=== PATIENT | female | born 2000 | race Caucasian/White ===

== ENCOUNTER → 2020-08-05 15:39 | Outpatient (BNVA) | payer MEDICAID, SELFPAY | PROVIDERS: Family Provider Nurse Practitioner Family; PCP Nurse Practitioner Family; Visit Provider Nurse Practitioner Women's Health | DX: E28.2 Polycystic ovarian syndrome (principal) | CPT/HCPCS: 88175 ==

== ENCOUNTER → 2021-08-06 15:49 | Outpatient (BNVA) | payer MEDICAID, SELFPAY | PROVIDERS: Family Provider Nurse Practitioner Family; PCP Nurse Practitioner Family; Visit Provider Nurse Practitioner Women's Health | DX: R00.0 Tachycardia, unspecified (principal); R53.83 Other fatigue; E28.2 Polycystic ovarian syndrome; N76.0 Acute vaginitis; Z01.419 Encounter for gynecological examination (general) (routine) without abnormal findings; Z30.41 Encounter for surveillance of contraceptive pills; G43.009 Migraine without aura, not intractable, without status migrainosus | CPT/HCPCS: 83036; 84439; 84443; 85025 ==

== ENCOUNTER → 2021-08-19 15:03 | Outpatient (BNVA) | payer MEDICAID, SELFPAY | PROVIDERS: Family Provider Nurse Practitioner Family; PCP Nurse Practitioner Family; Visit Provider Nurse Practitioner Family | DX: F41.9 Anxiety disorder, unspecified (principal); R53.83 Other fatigue; F32.A Depression, unspecified | CPT/HCPCS: 82306; 82607; 83540 ==

== ENCOUNTER → 2021-12-03 10:12 | Outpatient (BNVA) | payer BC, MEDICAID, SELFPAY | PROVIDERS: Family Provider Nurse Practitioner Family; PCP Nurse Practitioner Family; Visit Provider Nurse Practitioner Family | DX: E55.9 Vitamin D deficiency, unspecified (principal) | CPT/HCPCS: 82306 ==

== ENCOUNTER 2022-01-13 15:29 | Emergency (ER) | payer BC, MEDICAID, SELFPAY ==
[2022-01-13 15:44] VITALS: BP 124/86; PULSE 72; RESP 20; TEMP 36.9; O2SAT 98; BMI 32.9
--- NOTE | 2022-01-13 15:54 | XRR_ITS ---
PROCEDURE INFORMATION: Exam: XR Right Wrist Exam date and time: 01/13/2022 4:30 PM Age: 21 years old Clinical indication: Pain; Wrist; Right; Additional info: Right wrist injury with pain TECHNIQUE: Imaging protocol: XR Right wrist. Views: 3 or more views. COMPARISON: No relevant prior studies available. FINDINGS: Bones/joints: Osseous structures are intact. Negative for fracture. Joint spaces are preserved. Soft tissues: Normal. XR/XR wrist RT min 3V* [id number] IMPRESSION: No acute findings.
--- NOTE | 2022-01-13 15:54 | XRR_ITS ---
PROCEDURE INFORMATION: Exam: XR Right Hand Exam date and time: 01/13/2022 4:30 PM Age: 21 years old Clinical indication: Pain; Hand; Right; Additional info: Injury with pain in fingers TECHNIQUE: Imaging protocol: XR Right hand. Views: 3 or more views. COMPARISON: No relevant prior studies available. FINDINGS: Bones/joints: Osseous structures are intact. Negative for fracture. Joint spaces are preserved. Soft tissues: Normal. XR/XR hand RT min 3V* [id number] IMPRESSION: No acute findings.
--- NOTE | 2022-01-13 15:59 | ED_ITS ---
HPI - Extremity Problem General: Chief complaint: Extremity Injury, Upper Stated complaint: Rt hand injury Time Seen by Provider: 01/13/22 15:54 History of Present Illness: Patient is a 21-year-old female comes to the ED with right hand and right wrist injury. Injury occurred just prior to arrival. Patient says she was angry at her dog for jumping out the window and getting loose. She went to slam her front door and accidentally slammed it on her right hand. She is some pain and swelling in palm of right hand along with her second through fifth digits. Full range of motion but does complain of some pain with movement. No pain with range of motion in right wrist. Associated symptoms: Deny chest pain, fever(s) or rash Review of Systems Const: Denies: fever(s), chills or fatigue Eyes: Denies: change in vision or eye discomfort ENMT: Denies: throat pain, odynophagia, nasal discharge or nasal congestion Card: Denies: chest pain, palpitations, edema, swelling of feet/ankles, dyspnea on exertion or orthopnea Resp: Denies: dyspnea, productive cough or non-productive cough GI: Denies: abdominal pain, nausea, vomiting, diarrhea, constipation or hematochezia : Denies: flank pain, dysuria or hematuria Musc: Reports: extremity pain (Right wrist and hand.); Denies: neck pain, back pain or extremity swelling Skin/Breast: Denies: rash or new lesions Neuro: Denies: headache(s), numbness in extremities or weakness in extremities [facility] ED PFSH: Medical History Genital herpes simplex 12/19/2018: 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 Patient denies medical problems neghx:htn,dm,thyroid,dvt/pe PCP: Magdalena RESENDIZ Surgical History No history of previous surgery Family History Grandmother Colon cancer maternal--- dx age unknown Grandfather Hyperlipidemia maternal Heart disease maternal Family/Other Diabetes maternal aunt Patient denies medical problems Denies family history of: hypertension, thyroid problems, breast cancer, ovarian cancer, or uterine cancer. Other Stroke Social History Smoking and tobacco status: current every day smoker Quit status (tobacco): has quit using tobacco Year quit tobacco: 08/2019 Alcohol intake: never Additional social history: Well balanced diet Female Reproductive History: Date of last menstrual period: 09/08/19 Physical Exam Const: COMMON NORMALS: no acute distress, patient oriented x3, healthy appearing and alert GENERAL APPEARANCE: cooperative and comfortable HENMT: COMMON NORMALS: normocephalic HEAD & SCALP: normocephalic MOUTH: Normal oral and palatal mucosa present THROAT: posterior oropharynx normal and uvula midline Neck/C-Spine: COMMON NORMALS: supple GENERAL: Yes normal visual inspection Resp: COMMON NORMALS: normal respiratory effort, No retractions, No use of accessory muscles and clear to auscultation bilaterally AUSCULTATION: clear to auscultation bilaterally Cardio: COMMON NORMALS: regular rate, regular rhythm, S1 normal heart sound present, S2 normal heart sound present, No gallops present (Cardio), No clicks present (Cardio), No murmurs present (Cardio) and Peripheral pulses 2+ throughout RATE: regular rate RHYTHM: regular rhythm HEART SOUNDS: S1 normal heart sound present and S2 normal heart sound present PERIPHERAL PULSES: Peripheral pulses 2+ throughout GI: COMMON NORMALS: Normal to inspection, nondistended, normoactive bowel sounds present, Soft to palpation, non-tender and no masses PALPATION: Yes Soft to palpation : COMMON NORMALS: Yes no CVA tenderness BLADDER/KIDNEY EXAM: Yes no CVA tenderness Back/Pelvis: COMMON NORMALS: no CVA tenderness Extremity: COMMON NORMALS: normal to inspection, full ROM and capillary refill normal NARRATIVE EXTREMITY EXAM: No nail or nailbed damage noted on right hand. Neuro: COMMON NORMALS: patient oriented x3 and moves all extremities SENSORIUM/ORIENTATION: Yes alert Skin: GENERAL SKIN EXAM: dry skin Course Vital Signs: Vital signs: Vital Signs Temperature 98.5 F 01/13/22 16:11 Pulse Rate 77 01/13/22 17:04 Respiratory Rate 16 01/13/22 17:04 Blood Pressure 111/70 01/13/22 17:04 Pulse Oximetry 97 01/13/22 17:04 MDM - Extremity (Nontraumatic) Medical Decision Making Patient comes the ED with a right hand and wrist injury. Exam is benign. Neurovascular tact distally in right hand. vitals are stable. No nailbed or nail damage seen. X-ray of right wrist and hand showed no acute fractures or findings. Patient was diagnosed with a contusion of hand and was discharged home. She was told to follow-up with PCP in the next week for reevaluation. Return ED precautions given. Patient is to agree with plan. Lab Data Radiology Impressions Hand X-Ray 01/13/22 15:54 IMPRESSION: No acute findings. Wrist X-Ray 01/13/22 15:54 IMPRESSION: No acute findings. Discharge Plan Discharge Patient Disposition: Home Clinical Impression: Contusion of right hand including fingers Qualifiers: Encounter type: initial encounter Qualified Code(s): S60.221A - Contusion of right hand, initial encounter Condition: Stable Prescriptions: No Action norgestimate-ethinyl estradiol [Sprintec (28)] 0.25-35 mg-mcg tablet 1 tab PO DAILY Qty: 84 3RF metronidazole 500 mg tablet 500 mg PO BID Qty: 14 0RF citalopram [Celexa] 20 mg tablet 20 mg PO DAILY Qty: 30 5RF acyclovir 400 mg tablet 400 mg PO TID PRN0RF topiramate [Topamax] 200 mg tablet 100 mg PO BID PRN0RF sumatriptan succinate [Imitrex] 100 mg tablet 100 mg PO ONCE PRN0RF acetaminophen [Tylenol] 325 mg capsule 650 mg PO Q6H PRN0RF cholecalciferol (vitamin D3) 1,250 mcg (50,000 unit) capsule 50,000 unit PO .weekly 28 Days Qty: 4 2RF Discharge Orders: Discharge ED (Routine); Ordered 01/13/22 Ordered By: Ld Michel Referrals: Frida Sahu FNP-C [Primary Care Provider] - Discharge Diet: Regular Discharge Activity: Increase activity as tolerated Activity Restrictions/Additional Instructions: Follow-up with medical provider as directed in the next 5 to 7 days reevaluation. Apply cold pack on right hand to help with symptoms. Take [id number] Tylenol for any pain. Return to the ER or your medical provider if condition worsens. Please read and understand discharge instructions. Thank you for choosing [facility] for your healthcare needs today. Please realize this is an emergency room and that we are providing you with a medical screening exam and this may not be complete and all inclusive of all the testing and or work up that you may need to determine your ailment or severity of your illness. It is very important that you follow up as instructed or that you return to the Emergency Department should you have concerns or if your condition changes or worsens in any way. Coding Level of Care Code ED Die Trimmer for Williams Ch Exam Comprehensive
[2022-01-13 16:11] VITALS: BP 124/86; PULSE 72; RESP 18; TEMP 36.9; O2SAT 98
[2022-01-13] MEDS: ibuprofen 800 mg tablet PO (16:14)
[2022-01-13 17:04] VITALS: BP 111/70; PULSE 77; RESP 16; O2SAT 97
== END 2022-01-13 17:05 | disposition home or self-care (01) ==
PROVIDERS: Emergency Provider Physician Assistant; PCP Nurse Practitioner Family
DX: S60.221A Contusion of right hand, initial encounter (principal); W22.8XXA Striking against or struck by other objects, initial encounter; F17.210 Nicotine dependence, cigarettes, uncomplicated
CPT/HCPCS: 73110; 73130; 99283

== ENCOUNTER → 2022-04-05 08:01 | Outpatient (BNVA) | payer BC, MEDICAID, SELFPAY | PROVIDERS: PCP Nurse Practitioner Family; Visit Provider Orthopaedic Surgery | DX: M54.9 Dorsalgia, unspecified (principal) | CPT/HCPCS: 72050; 72070; 72110; 99204 ==

== ENCOUNTER 2022-05-27 06:33 | Outpatient (CLI) | payer BC, MEDICAID, SELFPAY ==
--- NOTE | 2022-05-27 07:15 | MR_ITS ---
WS: [id number] MRI LUMBAR SPINE NONCONTRAST HISTORY: Low back pain and lower extremity numbness for several months. COMPARISON: 04/05/2022 radiograph. TECHNIQUE: Sagittal and axial multisequence imaging is submitted. Normal lumbar alignment with no compression fractures or marrow edema. Disc spaces and vertebral body heights are well-preserved. Conus terminates normally at L1-2 disc level. L1-L2: Normal. L2-L3: Normal. L3-L4: Normal. L4-L5: Very mild disc bulging. Mild encroachment upon the ventral thecal sac. The central canal is sm all but not significantly stenosed at this time. L5-S1: Mild disc bulging. There is very slight disc contact on the LEFT exiting L5 nerve root. No dis placement. No stenosis. No retroperitoneal abnormality. MR/MR lumbar spine wo con* [id number] IMPRESSION: 1. No significant central or foraminal stenosis or disc protrusion. 2. Very mild narrowing of the central canal at L4-5. 3. Minimal disc bulge at L5-S1. There is very slight disc contact on the LEFT L5 nerve root.
== END 2022-05-27 06:34 | disposition home or self-care (01) ==
LOC: RAD 06:35
PROVIDERS: PCP Nurse Practitioner Family; Visit Provider Orthopaedic Surgery
DX: M51.27 Other intervertebral disc displacement, lumbosacral region (principal)
CPT/HCPCS: 72148

== ENCOUNTER 2023-01-26 20:00 | Outpatient (CLI) | payer BC, MEDICAID, SELFPAY | END 2023-01-26 20:01 | disposition home or self-care (01) | LOC: SLEEP 01-27 04:19 | PROVIDERS: PCP Nurse Practitioner Family; Visit Provider Anesthesiology Pain Medicine | DX: G47.10 Hypersomnia, unspecified (principal); R06.83 Snoring | CPT/HCPCS: 95810 ==

== ENCOUNTER → 2023-01-30 | Outpatient (BNVA) | payer BC, MEDICAID, SELFPAY | PROVIDERS: PCP Nurse Practitioner Family; Visit Provider Nurse Practitioner Women's Health | DX: Z01.419 Encounter for gynecological examination (general) (routine) without abnormal findings (principal); E28.2 Polycystic ovarian syndrome | CPT/HCPCS: 88175 ==

== ENCOUNTER → 2023-02-01 09:40 | Outpatient (BNVA) | payer BC, MEDICAID, SELFPAY | PROVIDERS: PCP Nurse Practitioner Family; Visit Provider Nurse Practitioner Women's Health | DX: E28.2 Polycystic ovarian syndrome (principal); Z31.9 Encounter for procreative management, unspecified | CPT/HCPCS: 83036; 84146; 84402; 84443; 86762 ==

== ENCOUNTER → 2023-02-06 08:26 | Outpatient (BNVA) | payer BC, MEDICAID, SELFPAY | PROVIDERS: PCP Nurse Practitioner Family; Visit Provider Obstetrics & Gynecology | DX: R79.89 Other specified abnormal findings of blood chemistry (principal); E28.2 Polycystic ovarian syndrome | CPT/HCPCS: 84146; 84402 ==

== ENCOUNTER → 2023-02-22 12:42 | Outpatient (BNVA) | payer BC, MEDICAID, SELFPAY | PROVIDERS: PCP Nurse Practitioner Family; Visit Provider Nurse Practitioner Women's Health | DX: E28.2 Polycystic ovarian syndrome (principal) | CPT/HCPCS: 76830 ==

== ENCOUNTER → 2023-10-11 15:02 | Outpatient (BNVA) | payer SELFPAY | PROVIDERS: PCP Nurse Practitioner Family; Visit Provider Nurse Practitioner Family | DX: R05.9 Cough, unspecified (principal) | CPT/HCPCS: 87400; 87426 ==

== ENCOUNTER → 2023-10-27 09:33 | Outpatient (BNVA) | payer SELFPAY | PROVIDERS: PCP Nurse Practitioner Family; Visit Provider Nurse Practitioner Family | DX: R53.83 Other fatigue (principal) | CPT/HCPCS: 82306; 82607; 83540; 84443; 85025 ==

== ENCOUNTER 2024-05-21 20:30 | Observation (INO) | payer SELFPAY ==
[2024-05-21] VITALS (8 sets, daily range): BP systolic 129–134; BP diastolic 88–95; PULSE 82–106; RESP 14–18; TEMP 36.7; O2SAT 98–100; BMI 29.2
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
[2024-05-21] MEDS: HYDROmorphone 1 mg/mL INJ 1 mL 0.5 MG IVP ×3 (21:23→23:14)
[2024-05-21] MEDS: ondansetron 2 mg/ML SDV 2 mL 4 MG IVP (21:24)
[2024-05-21] MEDS: ceFAZolin 1,000 MG in sodium chloride 0.9% (plus) 50 ML 100 MG IV (21:26)
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
[2024-05-21 22:01] LABS: Alanine Aminotransferase 16 U/L (0-33); Albumin Level 3.8 g/dL (3.5-5.2); Alkaline Phosphatase 58 U/L (35-105); Aspartate Amino Transferase 22 U/L (0-32); Blood Urea Nitrogen 12 mg/dL (6-20); Calcium 7.2 mg/dL (8.5-10.5); Carbon Dioxide 21 mmol/L (22-29); Chloride 110 mmol/L (98-107); Creatinine Clr Calc Pharmacy 134.8675; Globulin 1.9 g/dL (1.3-4.6); Glomerular Filtration Rate 122.8 mL/min (90-130); Glucose 87 mg/dL (65-115); Osmolality Calculated 293 mOsm/kg (285-295); Sodium 142 mmol/L (136-145); Total Bilirubin 0.3 mg/dL (0.15-1.2); Total Protein 5.7 g/dL (6.6-8.7)
[2024-05-21 22:04] LABS: Anion Gap 14.2 (5-19); Potassium 3.2 mmol/L (3.5-5.1)
[2024-05-21 22:33] LABS: Basophils % 0.1 %; Lymphocytes # 1.3 10^3/uL (0.8-4.8); Lymphocytes % 7.6 %; Mean Corpuscular HGB Conc 32.8 g/dL (30-55); Mean Corpuscular Hemoglobin 29.2 pg (27-33); Mean Platelet Volume 11.2 fL (7.4-10.4); Monocytes % 6.1 %; Neutrophils # 14.56 10^3/uL (1.8-7.7); Neutrophils % 85.8 %; Nucleated Red Blood Cells % 0 %; Platelet Count 157 10^3/cmm (157-399); Red Blood Count 4.83 10^6/uL (3.85-5.65); Red Cell Distribution Width 12.2 % (12.1-15.1); White Blood Count 16.95 10^3/uL (3.29-11.43)
[2024-05-21 22:45] LABS: INR 0.94 (0.8-1.2)
[2024-05-21 22:52] LABS: Slide Review Slide Review Perform
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
[2024-05-22] VITALS (19 sets, daily range): BP systolic 105–129; BP diastolic 58–96; PULSE 67–111; RESP 13–20; TEMP 36.3–36.7; O2SAT 92–100
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
[2024-05-22] MEDS: tetanus-dipt-pertussis 0.5 mL SDV IM (01:26)
--- NOTE | 2024-05-22 01:40 | ANES.PREANE2 ---
Pre-Anesthetic Assessment Height/Weight: Height 1.57 m Weight 72.575 kg Temp Pulse Resp BP Pulse Ox O2 Del Method 98.0 F 103 H 16 129/88 98 Room Air 05/21/24 20:38 05/21/24 22:42 05/21/24 23:14 05/21/24 22:42 05/21/24 22:42 05/21/24 22:42 I & D Familial anesthetic complications: none Was Beta Quita taken within 24 hours: N/A Was Clonidine taken within 24 hours: N/A Last intake: 1300 on 05/21 Social Tobacco and No alcohol Exam alert, oriented x 3, clear to auscultation bilaterally and regular rate & rhythm Airway Mallampati: Class III Dentition: full Metabolic PCOS Anesthetic Plan ASA status: 2E Anesthesia: General Risk of > 500 ml blood loss (7ml/kg in children): No Medications/Allergies Home Medications Medication Instructions Recorded Confirmed Last Taken Type ibuprofen 800 mg tablet 800 mg PO TID PRN 01/27/23 03/01/24 Unknown History azithromycin 250 mg tablet See Rx Instructions PO .COMPLEX #6 10/11/23 03/01/24 Unknown Rx tabs cholecalciferol (vitamin D3) 1,250 50,000 unit PO .weekly #4 caps 11/02/23 03/01/24 Unknown Rx mcg (50,000 unit) capsule Allergies Allergy/AdvReac Type Severity Reaction Status Date / Time No Known Allergies Allergy Verified 05/21/24 20:46 [facility] Anesthesia Medical History Patient denies medical problems neghx:htn,dm,thyroid,dvt/pe 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 Surgical History No history of previous surgery Family History Grandmother Colon cancer maternal--- dx age unknown Grandfather Hyperlipidemia maternal Heart disease maternal Family/Other Diabetes maternal aunt Patient denies medical problems Denies family history of: hypertension, thyroid problems, breast cancer, ovarian cancer, or uterine cancer. Other Stroke Social History Smoking and tobacco/nicotine status: current every day tobacco/nicotine user Quit status (tobacco/nicotine): has quit using Year quit tobacco: 08/2019 Alcohol intake: never Substance/Drug Use: never Additional social history: Well balanced diet Female Reproductive History Date of last menstrual period: 05/21/24 Data Anesthesia 05/21/24 22:26 05/21/24 21:30 Short CBC 05/21/24 05/21/24 Range/Units 21:30 22:26 WBC Cancelled 16.95 H Hgb Cancelled 14.10 Hct Cancelled 43.0 MCV Cancelled 89.0 Plt Count Cancelled 157 Neut % (Auto) Cancelled 85.8 Neut # (Auto) Cancelled 14.56 H BMP 05/21/24 21:30 Sodium 142 Potassium 3.2 L Chloride 110 H Carbon Dioxide 21 L BUN 12 Creatinine 0.6 Glucose 87 Calcium 7.2 L Liver Function 05/21/24 Range/Units 21:30 Total Bilirubin 0.3 (0.15-1.2) mg/dL AST 22 (0-32) U/L ALT 16 (0-33) U/L Alkaline Phosphatase 58 (35-105) U/L Albumin 3.8 (3.5-5.2) g/dL Coags 05/21/24 05/21/24 21:30 22:26 PT Cancelled 12.80 INR Cancelled 0.94 Cardiac Studies: No Data to Display
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
--- NOTE | 2024-05-22 02:23 | PC.NURSE ---
0155 - urine hcg completed prior to OR per this nurse and MOLLY Hurt - noted to be negative
[2024-05-22] MEDS: ceFAZolin 2,000 mg SDV 2000 MG IVP (02:24)
[2024-05-22] MEDS: BUPivacaine 0.5% INJ 30 mL XX (04:00)
--- NOTE | 2024-05-22 04:08 | P.BOP_ITS ---
Date of Procedure: [05/22/2024] Surgeon: Alok Michel DO Building Construction Contractor(s): None Procedure(s) performed: Left forearm irrigation debridement (13 cm x 8 cm x 3 cm) debridement of skin subcutaneous tissue fat fascia and muscle Left forearm laceration exploration and primary closure 13 cm laceration Findings of the procedure(s): Patient was found to have large forearm laceration and shearing of subcutaneous tissue off of the fascia. There was small rents in the fascia, compartments were soft and compressible. Small opening was directly to the cubital tunnel with a contused ulnar nerve button no evidence of laceration or injury to the ulnar nerve appreciated. No fracture noted. Multiple gross contamination's of gravel chat dirt and debris. Underwent thoroughly irrigation debridement and was able to primarily close incision placed in a splint. Wake from anesthesia taken back exam condition. We did clean and dress appropriately the left lower extremity abrasions as well. Estimated blood loss: 5 mL Specimen(s) removed: None Post-operative diagnosis: Left forearm laceration complicated with foreign bodies
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
--- NOTE | 2024-05-22 04:27 | SUR.OPER ---
0410 Washed left lower extremity abrasions with hebiclens and dried. Xeroform, abds, kerlix for dressing.
[2024-05-22] MEDS: piperacillin-tazobactam 3.375 GM in sodium chloride 0.9% (plus) 50 ML IV ×3 (05:58→21:32)
[2024-05-22] MEDS: ketorolac 30 mg/mL INJ 15 MG IVP ×4 (05:58→23:16)
[2024-05-22 06:20] LABS: Magnesium 1.9 mg/dL (1.7-2.3)
[2024-05-22 09:01] LABS: Basophils % 0.1 %; Hematocrit 44.6 % (36-47); Lymphocytes # 0.6 10^3/uL (0.8-4.8); Lymphocytes % 4.7 %; Mean Corpuscular HGB Conc 30.5 g/dL (30-55); Mean Corpuscular Hemoglobin 29.2 pg (27-33); Mean Corpuscular Volume 95.7 fl (85-98); Mean Platelet Volume 11.1 fL (7.4-10.4); Monocytes # 0.3 10^3/uL (0.2-0.9); Monocytes % 2.2 %; Neutrophils # 11.56 10^3/uL (1.8-7.7); Neutrophils % 92.8 %; Nucleated Red Blood Cells % 0 %; Platelet Count 176 10^3/cmm (157-399); Red Blood Count 4.66 10^6/uL (3.85-5.65); Red Cell Distribution Width 12.5 % (12.1-15.1); White Blood Count 12.47 10^3/uL (3.29-11.43)
[2024-05-22] MEDS: potassium chloride ER 20 mEq Tablet 120 MEQ PO (09:13)
[2024-05-22] MEDS: docusate sodium 100 mg Capsule PO ×2 (09:14→17:29)
[2024-05-22] MEDS: multivitamin therapeutic Tablet 1 TAB PO (09:14)
[2024-05-22] MEDS: calcium carb-vit d 600mg/400unit 1 Tablet 1 EACH PO ×2 (09:14→17:29)
[2024-05-22 09:17] LABS: Alanine Aminotransferase 20 U/L (0-33); Albumin Level 4.6 g/dL (3.5-5.2); Alkaline Phosphatase 74 U/L (35-105); Aspartate Amino Transferase 27 U/L (0-32); Blood Urea Nitrogen 13 mg/dL (6-20); Calcium 8.5 mg/dL (8.5-10.5); Carbon Dioxide 18 mmol/L (22-29); Chloride 102 mmol/L (98-107); Creatinine Clr Calc Pharmacy 101.1506; Globulin 2.1 g/dL (1.3-4.6); Glomerular Filtration Rate 88.1 mL/min (90-130); Glucose 174 mg/dL (65-115); Iron 30 ug/dL (37-145); Osmolality Calculated 290 mOsm/kg (285-295); Percent Saturation 9.2 % (20-50); Sodium 138 mmol/L (136-145); Total Bilirubin 0.4 mg/dL (0.15-1.2); Total Iron Binding Capacity 325 mcg/dl; Total Protein 6.7 g/dL (6.6-8.7); Unsaturated Iron Binding 295 ug/dL (112-347)
--- NOTE | 2024-05-22 09:22 | P.PHAVANC_ITS ---
Vancomycin Goal - Goal Vancomycin Goal:: 10-15 mg/L Vancomycin Indication:: Other (SUSPECTED INFECTION) - Therapy Current therapy:: Pip/Tazo Day of therpy:: Day [1]of [] . Actual body weight (kg): 72.575 kg [place] body weight: 50.1 kg Dosing weight (kg): 72.575 kg - Data Labs: WBC 12.47 10^3/uL (3.29-11.43) H 05/22/24 05:48 Corrected WBC Cancelled 05/21/24 21:30 RBC 4.66 10^6/uL (3.85-5.65) 05/22/24 05:48 Hgb 13.60 g/dL (11.27-16.99) 05/22/24 05:48 Hct 44.6 % (36-47) 05/22/24 05:48 MCV 95.7 fl (85-98) D 05/22/24 05:48 MCH 29.2 pg (27-33) 05/22/24 05:48 MCHC 30.5 g/dL (30-55) D 05/22/24 05:48 RDW 12.5 % (12.1-15.1) 05/22/24 05:48 Sodium 138 mmol/L (136-145) 05/22/24 05:48 Potassium 3.2 mmol/L (3.5-5.1) L 05/21/24 21:30 Chloride 102 mmol/L (98-107) 05/22/24 05:48 Carbon Dioxide 21 mmol/L (22-29) L 05/21/24 21:30 Anion Gap 14.2 (5-19) 05/21/24 21:30 BUN 13 mg/dL (6-20) 05/22/24 05:48 Creatinine 0.8 mg/dL (0.5-0.9) 05/22/24 05:48 GFR Calculation 122.8 mL/min (90-130) 05/21/24 21:30 Drug administration history:: Medications Vancomycin HCl (Vancocin) 1,250 mg in 250 mls @ 166.667 mls/hr IV Q12H SUSANA Piperacillin Sod/Tazobactam (Sod 3.375 gm/ Sodium Chloride) 50 mls @ 12.5 mls/hr IV Q8H SUSANA; Protocol Last Admin: 05/22/24 05:58 Dose: 12.5 mls/hr Treatment plan:: new consult Regimen:: Vancomycin 1250mg ivpb q12h Follow up:: Scr daily with am labs Vancomycin trough before 4th dose Rationale:: Cmax expected 36.7 Cpeak expected 33.3 Cmin expected 13.6
[2024-05-22 09:27] LABS: Anion Gap 22.7 (5-19); Potassium 4.7 mmol/L (3.5-5.1)
[2024-05-22 10:10] LABS: Amphetamines Screen Urine Negative (Negative); Barbiturates Screen Urine Negative (Negative); Benzodiazepines Screen Urine Negative (Negative); Cocaine Screen Urine Negative (Negative); Opiate Screen Urine Positive (Negative); PCP Screen Urine Negative (Negative); THC Screen Urine Positive (Negative)
[2024-05-22] MEDS: vancomycin 1,250 MG/250 ML PIGGYBACK 166.67 MG IV (11:54)
--- NOTE | 2024-05-22 12:00 | W.PM.EVENTAC ---
Event Note Event Note: Admitted overnight. Currently comfortable. Continue with wound care as per primary team. Check urine drug screen, MRSA swab. Continue with IV Zosyn. Add vancomycin for now given extensive injury. Check iron panel, vitamin B12, folate level.
--- NOTE | 2024-05-22 19:30 | P.PN_ITS ---
Subjective 2 Subjective: Patient was seen late this evening she has better pain control with the medications. At this point in time she is just receiving her next dose given this is late in the evening I talked about this with family in detail they like to just stay for an additional night just for observation pain control as well as to complete IV antibiotics given she was admitted early this morning I feel this is appropriate we will observe for 1 more night with plan for discharge tomorrow. Patient family understand agree with current plan. Questions answered. Vitals/I&O/Wt Last Vital Signs Temp 98.1 F 05/23/24 07:53 Pulse 82 05/23/24 11:10 Resp 18 05/23/24 11:10 BP 118/70 05/23/24 11:10 Pulse Ox 99 05/23/24 11:10 O2 Del Method Room Air 05/23/24 11:10 O2 Flow Rate 8 05/22/24 04:40 05/22/24 05/23/24 05/23/24 22:59 06:59 14:59 Intake Total 660 / 950 400.000 / 1350.000 240 / 240 Balance 660 / 300 400.000 / 700.000 240 / 240 Weight last 48 hrs Weight 159 lb 2 oz Weight 160 lb Physical Exam 2 Narrative: Dressings on in place to the left lower extremity Dressings and splint to the left upper extremity is on in place clean dry and intact she is able to wiggle her fingers she is able to perform AIN/PIN/radial/ulnar/median nerves intact sensations intact to light touch distally. Fingertips are warm well-perfused brisk capillary refill less than 2 seconds she is able to actively mobilize the fingers and wiggle as well as make a fist she has no pain with passive extension, and does not. Have any pain out of proportion compartments palpated around the splint are soft and compressible. Patient is resting comfortably this evening. Data 05/23/24 04:16 05/23/24 04:16 A&P Assessment and plan (1) Multiple abrasions: (2) Laceration of forearm, left, complicated: (3) Laceration of forearm with foreign body: Plan Continue IV antibiotics empiric coverage Appreciate internal medicine on board for medical management Elevation and ice as needed IV Toradol Bacitracin Xeroform and dry dressings for the abrasions Recommend nonweightbearing to left upper extremity May mobilize the left lower extremity as patient can tolerate Pain control Will observe for an additional night with continued IV antibiotics Attestations 2 Medical Necessity Statement*: Ongoing care and IV antibiotics required given extensive soft tissue injury complication laceration status post irrigation and debridement Coding Level of Care Code Acute Code for Chg Fwd Diagnoses Multiple abrasions T07.XXXA Laceration of forearm, left, complicated S51.812A Laceration of forearm with foreign body S51.829A Time Spent (min) 25
[2024-05-22] MEDS: HYDROcodone-acetaminophen 5-325 mg Tablet 1 TAB PO (19:37)
[2024-05-22] MEDS: vancomycin 1,250 MG/250 ML PIGGYBACK 250 MG IV (23:17)
[2024-05-23] VITALS (7 sets, daily range): BP systolic 114–122; BP diastolic 70–77; PULSE 75–96; RESP 16–20; TEMP 36.7–36.9; O2SAT 95–100; BMI 29.0
[2024-05-23] MEDS: morphine 4 mg/mL SDV 1 mL 1 MG IVP (00:51)
[2024-05-23] MEDS: magnesium sulfate premix 1 GM/100 ML PIGGYBACK IV (01:46)
[2024-05-23] MEDS: HYDROcodone-acetaminophen 5-325 mg Tablet 1 TAB PO (04:09)
--- NOTE | 2024-05-23 04:31 | PC.NURSE ---
Patient stated pain in left leg is 9/10. Pain medication was given but did not help. Dr egan was notified and new orders given.
[2024-05-23 05:13] LABS: Basophils % 0.1 %; Eosinophils % 0.1 %; Hematocrit 38.9 % (36-47); Lymphocytes # 2.3 10^3/uL (0.8-4.8); Lymphocytes % 14.1 %; Mean Corpuscular HGB Conc 32.4 g/dL (30-55); Mean Corpuscular Hemoglobin 29.4 pg (27-33); Mean Corpuscular Volume 90.7 fl (85-98); Mean Platelet Volume 11.2 fL (7.4-10.4); Monocytes # 1.5 10^3/uL (0.2-0.9); Monocytes % 9.1 %; Neutrophils # 12.11 10^3/uL (1.8-7.7); Neutrophils % 76.1 %; Nucleated Red Blood Cells % 0 %; Platelet Count 214 10^3/cmm (157-399); Red Blood Count 4.29 10^6/uL (3.85-5.65); Red Cell Distribution Width 12.6 % (12.1-15.1); White Blood Count 15.91 10^3/uL (3.29-11.43)
[2024-05-23 05:33] LABS: Alanine Aminotransferase 18 U/L (0-33); Albumin Level 4.2 g/dL (3.5-5.2); Alkaline Phosphatase 63 U/L (35-105); Anion Gap 18.2 (5-19); Aspartate Amino Transferase 24 U/L (0-32); Blood Urea Nitrogen 15 mg/dL (6-20); Calcium 8.8 mg/dL (8.5-10.5); Carbon Dioxide 20 mmol/L (22-29); Chloride 104 mmol/L (98-107); Creatinine Clr Calc Pharmacy 101.1506; Globulin 2.6 g/dL (1.3-4.6); Glomerular Filtration Rate 88.1 mL/min (90-130); Glucose 116 mg/dL (65-115); Osmolality Calculated 288 mOsm/kg (285-295); Potassium 4.2 mmol/L (3.5-5.1); Sodium 138 mmol/L (136-145); Total Bilirubin 0.6 mg/dL (0.15-1.2); Total Protein 6.8 g/dL (6.6-8.7)
[2024-05-23 05:34] LABS: Magnesium 2.1 mg/dL (1.7-2.3)
[2024-05-23] MEDS: ketorolac 30 mg/mL INJ 15 MG IVP (05:41)
[2024-05-23] MEDS: piperacillin-tazobactam 3.375 GM in sodium chloride 0.9% (plus) 50 ML IV (05:41)
[2024-05-23 05:54] LABS: Folate Level 11.5 ng/mL (4.8-37.3)
--- NOTE | 2024-05-23 08:49 | XR_ITS ---
WS: [id number] Left leg including the tibia and fibula, AP and lateral views, 05/23/2024 Clinical Data: increased pain Comparison: None. Findings: No fractures or dislocations are seen. The tibia and fibula are intact. The soft tissues are normal. No bone destruction or erosion is seen. XR/XR tibia fibula LT 2V [id number] Impression: Negative left leg.
--- NOTE | 2024-05-23 08:49 | XR_ITS ---
WS: [id number] Left ankle, AP and lateral views, 05/23/2024 Clinical Data: increased pain Comparison: None. Findings: No fractures or dislocations are seen. The ankle mortise is normal. The talus and calcaneus are unrem arkable. No soft tissue swelling over the medial or lateral malleolus is seen. XR/XR ankle LT 2V [id number] Impression: Negative left ankle.
[2024-05-23] MEDS: methocarbamol 500 mg Tablet PO (09:12)
[2024-05-23] MEDS: docusate sodium 100 mg Capsule PO (09:12)
[2024-05-23] MEDS: calcium carb-vit d 600mg/400unit 1 Tablet 1 EACH PO (09:12)
[2024-05-23] MEDS: multivitamin therapeutic Tablet 1 TAB PO (09:13)
[2024-05-23] MEDS: vancomycin 1,250 MG/250 ML PIGGYBACK 167 MG IV (12:44)
--- NOTE | 2024-05-23 13:05 | P.PN_ITS ---
Subjective 2 Subjective: Patient seen and examined this morning as well as additionally later this afternoon. Patient this morning has required some increase in her pain medication as initially she was only tolerating just the Toradol she is required increased narcotics this has eventually started to help as well as the muscle relaxer that was added from this morning. She was complaining of left ankle pain we did obtain ankle and tib-fib films which were negative for any acute fracture or dislocation. Patient is now completed over 24 hours of IV antibiotics talked and reassured with patient and at this point in time patient as well as family comfortable and like to discharge home. They are stable from an orthopedic standpoint as well as internal medicine standpoint Vitals/I&O/Wt Last Vital Signs Temp 98.1 F 05/23/24 07:53 Pulse 82 05/23/24 11:10 Resp 18 05/23/24 11:10 BP 118/70 05/23/24 11:10 Pulse Ox 99 05/23/24 11:10 O2 Del Method Room Air 05/23/24 11:10 O2 Flow Rate 8 05/22/24 04:40 05/22/24 05/23/24 05/23/24 22:59 06:59 14:59 Intake Total 660 / 950 400.000 / 1350.000 240 / 240 Balance 660 / 300 400.000 / 700.000 240 / 240 Weight last 48 hrs Weight 159 lb 2 oz Weight 160 lb Physical Exam 2 Narrative: Dressings on in place to the left lower extremity, Samir wrap was subsequently taken down, the compartments to the left lower extremity are soft and nontender and compressible. She does have abrasions over this area which are tender but the compartments are soft. She is able to wiggle her toes as well as plantarflex and dorsiflex ankle but does have some slight pain with this. She is able to tolerate passive range of motion of the ankle with no pain out of proportion. Distal pulses are palpable toes are warm well-perfused brisk cap refill less than 2 seconds. Examination of the ankle appears to be stable she has subtle lateral malleolus tenderness to palpation as well as most pronounced tenderness palpation over the lateral ankle ligamentous complex. There is no excessive swelling in the ankle no significant medial or tibiotalar joint line tenderness. Stable drawer test. Dressings and splint to the left upper extremity is on in place clean dry and intact she is able to wiggle her fingers she is able to perform AIN/PIN/radial/ulnar/median nerves intact sensations intact to light touch distally. Fingertips are warm well-perfused brisk capillary refill less than 2 seconds she is able to actively mobilize the fingers and wiggle as well as make a fist she has no pain with passive extension, and does not. Have any pain out of proportion compartments palpated around the splint are soft and compressible. Patient is resting comfortably this evening. Data 05/23/24 04:16 05/23/24 04:16 Xray Ortho: Radiologist's impression: XR/XR ankle LT 2V 35331 Impression: Negative left ankle. XR/XR tibia fibula LT 2V [id number] Impression: Negative left leg. A&P Assessment and plan (1) Multiple abrasions: (2) Laceration of forearm, left, complicated: (3) Laceration of forearm with foreign body: Plan Completed greater than 24 hours IV antibiotics empiric coverage Appreciate internal medicine on board for medical management Elevation and ice as needed IV Toradol Adjusted pain medication Bacitracin Xeroform and dry dressings for the abrasions Recommend nonweightbearing to left upper extremity X-rays performed of the left ankle and tib-fib no acute fracture dislocation noted this point time can mobilize to the left lower extremity as she can tolerate may utilize crutches or walker if necessary Pain control Patient stable for discharge from orthopedic standpoint, the follow-up with orthopedics in the office in 2 weeks upon discharge stable for internal medicine standpoint. They understand discharge instructions as well as pain medication we will follow-up in 2 weeks. Attestations 2 Medical Necessity Statement*: Ongoing care and IV antibiotics required given extensive soft tissue injury complication laceration status post irrigation and debridement Coding Level of Care Code Acute Code for Chg Fwd Diagnoses Multiple abrasions T07.XXXA Laceration of forearm, left, complicated S51.812A Laceration of forearm with foreign body S51.829A
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
--- NOTE | 2024-05-23 15:20 | PC.NURSE ---
Dr. Michel called and stated the antibiotic has been change to Augmentin 500-125 mg tabs PO BID for 10 days. This nurse called [facility] in [place] to change the order. Pharmacist will go over changes with patient when medication is picked up.
--- NOTE | 2024-05-23 15:22 | PC.NURSE ---
Discussed discharge, new medications, stopped medications and follow up visits. Discussed other instructions as well as wound care. Patient verbalized understanding.
[2024-05-24 15:15] LABS: Methicillin-Resist S.aureu PCR NOT DETECTED (NOT DETECTED)
== END 2024-05-23 14:45 | disposition home or self-care (01) ==
LOC: ER 05-22 02:14 → OR 05-22 02:14 → MEDSURG 05-22 02:28
PROVIDERS: Internal Medicine; Student in an Organized Health Care Education/Training Program; Admitting Provider Student in an Organized Health Care Education/Training Program; Emergency Provider Emergency Medicine; PCP Nurse Practitioner Family; Visit Provider Student in an Organized Health Care Education/Training Program
PROC: (CPT 12035; principal; 2024-05-22 02:15)
DX: S51.822A Laceration with foreign body of left forearm, initial encounter (principal); V29.99XA Rider (driver) (passenger) of other motorcycle injured in unspecified traffic accident, initial encounter; T07.XXXA Unspecified multiple injuries, initial encounter; E87.6 Hypokalemia; D27.9 Benign neoplasm of unspecified ovary; D72.829 Elevated white blood cell count, unspecified; R00.0 Tachycardia, unspecified; D27.0 Benign neoplasm of right ovary; F17.200 Nicotine dependence, unspecified, uncomplicated; E28.2 Polycystic ovarian syndrome
CPT/HCPCS: 12035; 36415; 70450; 71045; 71250; 72125; 73080; 73200; 73502; 73552; 73590; 73600; 74176; 80053; 80306; 82746; 83540; 83550; 83735; 85025; 85610; 87641; 90471; 90715; 96365; 96375; 96376; 97110; 97165; 99285; G0378; J0690; J1100; J1170; J1200; J1885; J2250; J2270; J2405; J2543; J2704; J3010; J3370; J3475; J3490

== ENCOUNTER → 2024-05-28 11:03 | Outpatient (BNVA) | payer SELFPAY | PROVIDERS: PCP Nurse Practitioner Family; Visit Provider Nurse Practitioner Family | DX: D27.9 Benign neoplasm of unspecified ovary (principal) | CPT/HCPCS: 80053; 85025 ==

== ENCOUNTER → 2024-07-30 09:16 | Outpatient (BNVA) | payer SELFPAY | PROVIDERS: PCP Nurse Practitioner Family; Visit Provider Physician Assistant | DX: T07.XXXD Unspecified multiple injuries, subsequent encounter; V86.6 Passenger of special all-terrain or other off-road motor vehicle injured in nontraffic accident | CPT/HCPCS: 73090 ==

== ENCOUNTER → 2024-09-17 11:22 | Outpatient (BNVA) | payer SELFPAY | PROVIDERS: PCP Nurse Practitioner Family; Visit Provider Physician Assistant | DX: M25.522 Pain in left elbow; T07.XXXA Unspecified multiple injuries, initial encounter; S51.812A Laceration without foreign body of left forearm, initial encounter; V86.66XA Passenger of dirt bike or motor/cross bike injured in nontraffic accident, initial encounter | CPT/HCPCS: 73080 ==

== ENCOUNTER 2025-07-15 08:03 | Outpatient (CLI) | payer BC, MEDICAID, SELFPAY ==
--- NOTE | 2025-07-15 08:15 | US_ITS ---
WS: [id number] US pelv w/transvag [id number] HISTORY: D36.9 - Benign neoplasm, unspecified site COMPARISON: CT 05/21/2024, ultrasound 02/22/2023 Uterus: 8.5 cm x 4.5 cm x 3.4 cm. Normal size anteverted uterus. No fibroid or mass. Endometrium: 1.1 cm. Normal. Right ovary: Large mass in the RIGHT adnexa is heterogeneous with cystic and solid and echogenic components. Mass measures 8.8 x 8.8 x 8.7 cm. Mild peripheral vascularity. No additional ovarian tissue. Left ovary: 4.3 cm x 4.1 cm x 3.7 cm. Enlarged heterogeneous ovary. LEFT ovary has septations and fluid internally. There is mild peripheral vascularity. Mild through transmission of this complex cystic mass. No free fluid in the cul-de-sac. US/US pelv w/transvag [id number] IMPRESSION: 1. Large, complex heterogeneous mass in the RIGHT adnexa is reidentified. Prev iously noted on a CT from 05/21/2024. 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 No increase in size since the CT exam. A separate normal ovary is not amadou ntified. 2. Enlarged heterogeneous LEFT ovary is most consistent with a hemorrhagic cys t involving majority of the ovary which is slightly enlarged.
== END 2025-07-15 08:04 | disposition home or self-care (01) ==
LOC: RAD 08:06
PROVIDERS: PCP Nurse Practitioner Family; Visit Provider Obstetrics & Gynecology
DX: D36.9 Benign neoplasm, unspecified site (principal); N83.8 Other noninflammatory disorders of ovary, fallopian tube and broad ligament; N83.202 Unspecified ovarian cyst, left side
CPT/HCPCS: 76830; 76856

== ENCOUNTER 2025-07-15 09:01 | Day surgery (SDC) | payer BC, MEDICAID, SELFPAY ==
[2025-07-15] VITALS (15 sets, daily range): BP systolic 108–134; BP diastolic 63–84; PULSE 89–112; RESP 14–29; TEMP 36.1–36.7; O2SAT 95–100; BMI 32.1
--- NOTE | 2025-07-15 00:44 | W.PM.OPSFHP ---
Same Day Surgery H&P Indication for Procedure/HPI DATE OF PROCEDURE: July 15, 2025 CHIEF COMPLAINT/INDICATIONFOR SURGICAL PROCEDURE: right adnexal cyst PREOP DIAGNOSIS: right adnexal cyst PLANNED PROCEDURE: Operation Date: 07/15/25 12:00 Proposed Procedures p Laparoscopy [id number] D27.9(Not Applicable) - Codey Greene MD s POSSIBLE RIGHT Cystectomy(Right) - MD mitchell Anderson POSSIBLE Exploratory Laparotomy(Not Applicable) - Codey Greene MD Medications/Allergies* Home Medications ?Medication ?Instructions ?Recorded ?Confirmed ?Type cyclobenzaprine 10 mg tablet 10 mg PO TID PRN Spasms 07/02/25 07/14/25 History Allergies/Adverse Reactions Allergy/AdvReac Type Severity Reaction Status Date / Time latex Allergy ALGY-Rash Verified 07/02/25 09:37 Pertinent History/Comorbid Conditions* Medical History (Updated 07/03/25 @ 00:01 by ALEC Souza) PCOS (polycystic ovarian syndrome) Patient denies medical problems neghx:htn,dm,thyroid,dvt/pe PCP: Magdalena RESENDIZ Genital herpes simplex 12/19/2018: 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 Surgical History (Updated 10/11/19 @ 09:13 by Monique Verdin APN, ANTHONY) No history of previous surgery Family History (Updated 08/05/20 @ 14:57 by Jesica Pool) Colon cancer Grandmother maternal--- dx age unknown Diabetes Family/Other maternal aunt Heart disease Grandfather maternal Hyperlipidemia Grandfather maternal Patient denies medical problems Family/Other Denies family history of: hypertension, thyroid problems, breast cancer, ovarian cancer, or uterine cancer. Stroke Social History Smoking and tobacco/nicotine status: current every day tobacco/nicotine user Alcohol intake: never Substance/Drug Use: never Additional social history: Well balanced diet Pertinent Exam Findings alert, oriented x 3, clear to auscultation bilaterally and regular rate & rhythm Recommendations Surgery/Procedure today Coding Level of Care Code Acute Code for Kaiserg Fwwilbur
[2025-07-15 09:20] LABS: OR HCG Qualitative Urine Negative (Negative)
--- NOTE | 2025-07-15 09:51 | W.PM.OPSUD ---
Surgery/Procedure H&P Update DATE OF PROCEDURE: July 15, 2025 DATE H&P PERFORMED: 07/02/25 H&P UPDATE INFORMATION: I have reviewed H&P completed within last 30 days, I have examined patient prior to procedure and No changes to prior documentation PREOP DIAGNOSIS: right adnexal cyst PLANNED PROCEDURE: Operation Date: 07/15/25 12:00 Proposed Procedures p Laparoscopy [id number] D27.9(Not Applicable) - Codey Greene MD s POSSIBLE RIGHT Cystectomy(Right) - Codey Greene MD s POSSIBLE Exploratory Laparotomy(Not Applicable) - Codey Greene MD
--- NOTE | 2025-07-15 09:53 | ANES.PREANE2 ---
Pre-Anesthetic Assessment Height/Weight: Height 1.57 m Weight 79.832 kg Temp Pulse Resp BP Pulse Ox O2 Del Method 98.0 F 99 18 122/66 97 Room Air 07/15/25 09:23 07/15/25 09:23 07/15/25 09:23 07/15/25 09:37 07/15/25 09:23 07/15/25 09:24 Preop Diagnosis: right adnexal cyst Operation Date: 07/15/25 12:00 Proposed Procedures p Laparoscopy [id number] D27.9(Not Applicable) - Codey Greene MD s POSSIBLE RIGHT Cystectomy(Right) - Codey Greene MD s POSSIBLE Exploratory Laparotomy(Not Applicable) - Codey Greene MD Familial anesthetic complications: None Was Beta Quita taken within 24 hours: N/A Was Clonidine taken within 24 hours: N/A Last intake: Intake Last Liquid Date 07/14/25 Last Liquid Time 21:30 Last Solid Date 07/14/25 Last Solid Time 21:30 Social Tobacco and No alcohol Exam alert, oriented x 3, clear to auscultation bilaterally and regular rate & rhythm Airway Mallampati: Class IV Dentition: full Metabolic Morbid Obesity PCOS Anesthetic Plan ASA status: 2 Anesthesia: General Risk of > 500 ml blood loss (7ml/kg in children): No Medications/Allergies Home Medications ?Medication ?Instructions ?Recorded ?Confirmed ?Last Taken ?Type cyclobenzaprine 10 mg tablet 10 mg PO TID PRN Spasms 07/02/25 07/14/25 05/05/25 History Allergies Allergy/AdvReac Type Severity Reaction Status Date / Time latex Allergy ALGY-Rash Verified 07/02/25 09:37 [facility] Anesthesia Medical History (Updated 07/03/25 @ 00:01 by ALEC Souza) PCOS (polycystic ovarian syndrome) Patient denies medical problems neghx:htn,dm,thyroid,dvt/pe PCP: Magdalena RESENDIZ Genital herpes simplex 12/19/2018: 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 Surgical History No history of previous surgery Family History Grandmother Colon cancer maternal--- dx age unknown Grandfather Hyperlipidemia maternal Heart disease maternal Family/Other Diabetes maternal aunt Patient denies medical problems Denies family history of: hypertension, thyroid problems, breast cancer, ovarian cancer, or uterine cancer. Other Stroke Social History (Updated 07/02/25 @ 09:41 by Uriel Gaytan CNA) Smoking and tobacco/nicotine status: current every day tobacco/nicotine user Alcohol intake: never Substance/Drug Use: never Additional social history: Well balanced diet Female Reproductive History Date of last menstrual period: 04/29/25
[2025-07-15] MEDS: BUPivacaine 0.5% INJ 30 mL INJECTION (11:35)
[2025-07-15] MEDS: BUPivacaine liposome 13.3 mg/mL SDV 20 mL 266 MG INFILTRATI (11:36)
[2025-07-15] MEDS: fentaNYL 50 mcg/mL INJ 2mL IVP (12:18)
--- NOTE | 2025-07-15 13:05 | PM.OP ---
Operative Report Date of procedure: July 15, 2025 Pre-op diagnosis: Right adnexal mass Post-op diagnosis: same Post-op findings: Right ovarian cyst, 12 cm Normal uterus, left ovary, fallopian tubes Otherwise normal pelvis Procedure done: Laparoscopy Exploratory laparotomy via Pfannenstiel incision Right oophorectomy Implants: none Specimens removed/disposition: right ovary Surgeon: Codey Greene MD Anesthesia: General Estimated blood loss (mL): 5 Complications: none Findings: see above Condition: stable Disposition: PACU Brief History: 24 y.o. with right adnexal cyst Procedure: The patient was taken to the OR and placed supine on the table. General endotracheal anesthesia was done. Weiner catheter was placed which drained clear yellow urine. The abdomen was prepped and draped in the usual fashion. A 5 mm subumbilical incision was made. A Veress needle was placed into the abdominal cavity. Pneumoperitoneum was achieved. The Veress needle was removed. A 5 mm trocar with sheath was then placed into the abdominal cavity. A laparoscope was used to visualize the pelvis. A large right adnexal cyst can be seen, measuring approximately 12 cm, obscuring the entire pelvis. Due to its large size, it was decided to proceed with a Pfannenstiel, mini-laparotomy approach. The laparoscope was removed. A Pfannenstiel incision was made and carried down through skin, subcutaneous tissue, and fascia. The fascial incision was extended. The rectus muscle was split in the midline. The peritoneum was entered bluntly. The pelvis was explored. Normal uterus, left ovary, and fallopian tubes were seen. The right ovary was involved in the 12 cm adnexal cyst. A Ligasure device was then used to excise the right ovary by clamping the utero-ovarian ligament. In this fashion, the right ovary and cyst was removed and sent to pathology. No bleeding was seen. The pelvis was irrigated with water. The fascia was then closed with a running O-Vicryl suture. The subcutaneous tissue was re-approximated with interrupted stitches of 2-O chromic. The skin was re-approximated with Insorb aimee. The subumbilical incision was closed with subcuticular suture. Patient was then taken to the PACU in good condition. Postoperative condition: Stable EBL: 5 cc Complications: none Sponge, instruments, and needle counts correct x two
[2025-07-15] MEDS: ondansetron 2 mg/ML SDV 2 mL 4 MG IVP (13:46)
--- NOTE | 2025-07-15 14:25 | ANE.PACU2 ---
Inpatient post-anesthesia follow up: Airway intact: Yes Vital signs: Temperature 97.5 F Pulse Rate 90 Respiratory Rate 16 Blood Pressure 118/80 Pulse Oximetry 99 Oxygen Delivery Me thod Room Air Oxygen Flow Rate 10 Fraction of Inspir ed Oxygen Hydration adequate: Yes Nausea and vomiting: No Pain level: 1 Mental status: Baseline
== END 2025-07-15 14:25 | disposition home or self-care (01) ==
PROVIDERS: Anesthesiology; PCP Nurse Practitioner Family; Visit Provider Obstetrics & Gynecology
PROC: (CPT 49320; principal; 2025-07-15 11:50)
PROC: (CPT 58662; 2025-07-15 11:50)
DX: D27.0 Benign neoplasm of right ovary (principal); E28.2 Polycystic ovarian syndrome; F17.200 Nicotine dependence, unspecified, uncomplicated; E66.01 Morbid (severe) obesity due to excess calories; Z68.32 Body mass index [BMI] 32.0-32.9, adult
CPT/HCPCS: 58661; 51702; 81025; 88305; J0666; J1100; J1171; J2250; J2405; J2704; J3010; J3490; J7030; J9999